=== PATIENT | male | born 1950 | race Caucasian/White ===

== ENCOUNTER → 2017-03-28 | Outpatient (CLI) | payer OTHER ==
[~2017-03-28] MED LIST: CELLCEPT250 MG PO; CHLORTHALIDONE25 MG PO; CLOPIDOGREL75 MG PO; LIPITOR TAB 2020 MG PO; LOPRESSOR50 MG PO; MAGNESIUM400 MG PO; NORVASC 5 MG TAB5 MG PO; PHOSPHA 250 NE250 MG PO; PROGRAF0.5 MG PO; VALSARTAN320 MG PO; VITAMIN D350000 UNIT PO
== END ==
LOC: KOH-I 15:36
DX: N18.9 Chronic kidney disease, unspecified (principal); R50.9 Fever, unspecified; R10.9 Unspecified abdominal pain; R19.7 Diarrhea, unspecified; Z79.4 Long term (current) use of insulin; K52.9 Noninfective gastroenteritis and colitis, unspecified
CPT/HCPCS: 74176

== ENCOUNTER 2017-04-07 16:04 | Inpatient (IN) | payer OTHER ==
[~2017-04-07] VITALS: Ht 167.6 cm; Wt 101.8 kg
[2017-04-07 18:47] LABS: HEMOGLOBIN 13.1 gm/dl (14.0-17.5); RED BLOOD COUNT 4.17 M/UL (4.20-5.50); WHITE BLOOD COUNT 16.5 K/UL (4.5-11.0)
[2017-04-07] MEDS ORDERED: CELLCEPT250 MG PO (23:14)
[2017-04-07] MEDS ORDERED: PROGRAF0.5 MG PO (23:15)
[2017-04-07] MEDS ORDERED: CLOPIDOGREL75 MG PO (23:15)
[2017-04-07] MEDS ORDERED: LOPRESSOR50 MG PO (23:16)
[2017-04-07] MEDS ORDERED: LIPITOR TAB 2020 MG PO (23:16)
[2017-04-07] MEDS ORDERED: MAGNESIUM400 MG PO (23:17)
[2017-04-07] MEDS ORDERED: PHOSPHA 250 NE250 MG PO (23:17)
[2017-04-07] MEDS ORDERED: CHLORTHALIDONE25 MG PO (23:18)
[2017-04-07] MEDS ORDERED: VITAMIN D350000 UNIT PO (23:20)
[2017-04-07] MEDS ORDERED: VALSARTAN320 MG PO (23:20)
[2017-04-07] MEDS ORDERED: NORVASC 5 MG TAB5 MG PO (23:21)
--- NOTE | 2017-04-08 14:01 | NUR ---
PT TRANSFERRED TO [facility], PER MD ORDER, REPORT CALLED TO [facility] CHARGE NURSE AT 1305.
== END 2017-04-08 13:57 | disposition short-term general hospital (02) | DRG 388 ==
LOC: ER1 16:04 → ZEROF 20:26 → PROG CARE 22:00
PROVIDERS: Emergency Medicine; ADMIT Internal Medicine
DX: K56.60 Unspecified intestinal obstruction (principal); N18.6 End stage renal disease; J44.1 Chronic obstructive pulmonary disease with (acute) exacerbation; I12.0 Hypertensive chronic kidney disease with stage 5 chronic kidney disease or end stage renal disease; R18.8 Other ascites; Z94.0 Kidney transplant status; R09.02 Hypoxemia; K52.9 Noninfective gastroenteritis and colitis, unspecified; Z99.2 Dependence on renal dialysis; F17.210 Nicotine dependence, cigarettes, uncomplicated; I25.10 Atherosclerotic heart disease of native coronary artery without angina pectoris; K59.00 Constipation, unspecified; R06.02 Shortness of breath; R00.0 Tachycardia, unspecified; M19.90 Unspecified osteoarthritis, unspecified site; I73.9 Peripheral vascular disease, unspecified; Z95.1 Presence of aortocoronary bypass graft; Z82.49 Family history of ischemic heart disease and other diseases of the circulatory system; Z79.899 Other long term (current) drug therapy
CPT/HCPCS: 36415; 71010; 80053; 83605; 83690; 83880; 84484; 85025; 85610; 85730; 87040; 93005; 94640; 94664; 96374; 96375; 99291; J1956; J2270; J2405; J2930; J7030